=== PATIENT | female | born 1965 | race Caucasian/White ===

== ENCOUNTER 2020-07-07 04:18 | Day surgery (SDC) | payer OTHER ==
[2020-07-03 15:48] VITALS: BMI 24.7
[2020-07-07 06:41] LABS: HEMATOCRIT 42.4 % (32.4-45.2); HEMOGLOBIN 14.1 GM/dL (10.7-15.3); MCH 29.6 pg (25.7-33.7); MCHC 33.3 g/dl (32.0-36.0); MEAN PLT VOLUME 8.7 fl (7.5-11.1); PLATELET COUNT 269 K/MM3 (134-434); RBC 4.76 M/mm3 (3.60-5.2); RDW 13.8 % (11.6-15.6); WHITE BLOOD COUNT 6.7 K/mm3 (4.0-10.0)
[2020-07-07 06:52] LABS: ALBUMIN 4.2 g/dl (3.4-5.0); BILIRUBIN,TOTAL 0.3 mg/dL (0.2-1); CALCIUM 9.2 mg/dL (8.5-10.1); CREATININE 0.9 mg/dL (0.55-1.3); POTASSIUM 4.8 mmol/L (3.5-5.1)
[2020-07-07 07:00] LABS: INR 0.98 (0.83-1.09); PROTHROMBIN TIME (PATIENT) 11.6 SEC (9.7-13.0)
[2020-07-07] MEDS ORDERED: PROPOFOL 20 ML ONE ×2 (07:38)
[2020-07-07] MEDS ORDERED: ROCURONIUM BROMIDE 50 MG/5 ML SYRINGE ONE (07:38)
[2020-07-07] MEDS ORDERED: MIDAZOLAM HCL 2 MG/2 ML SINGLE DOSE VIAL ONE (07:39)
--- NOTE | 2020-07-07 08:44 | HP ---
History & Physical Update - History History: No Change (Endometrial thickening) - Physical Physical: No Change - Assessment Assessment: No Change - Plan Plan: No Change (Hysteroscopy, D&C)
[2020-07-07] MEDS ORDERED: oxyCODONE HCL 5 MG TABLET PO PRN (09:17)
[2020-07-07] MEDS ORDERED: ONDANSETRON 4 MG/2 ML VIAL IVPUSH PRN (09:17)
--- NOTE | 2020-07-07 09:19 | OP ---
Operative Note - Note: Operative Date: 07/07/20 Pre-Operative Diagnosis: Thickened Endom echo. Postmenopausal bleeding Operation: Hysteroscopy, D&C Findings: Normal endometrial cavity with atrophic endometrium Post-Operative Diagnosis: Same as Pre-op Surgeon: Medhat Bonilla Anesthesiologist/FIELD TRAINER: Marichuy Mcfarlane Anesthesia: General Specimens Removed: Endometrial curettings Estimated Blood Loss (mls): 3 Blood Volume Replaced (mls): 0 Fluid Volume Replaced (mls): 800 Operative Report Dictated: Yes
[2020-07-07] MEDS ORDERED: LACTATED RINGERS SOLUTION 1,000 ML IV SCH (09:30)
--- NOTE | 2020-07-07 11:57 | OP ---
DATE OF OPERATION: 07/07/2020 PREOPERATIVE DIAGNOSIS: Postmenopausal bleeding, thickened endometrial echo. POSTOPERATIVE DIAGNOSIS: Postmenopausal bleeding, thickened endometrial echo. PROCEDURE: Hysteroscopy, dilation and curettage. SURGEON; Dilshad Gordillo MD ANESTHESIOLOGIST: BEBETO Osman ANESTHESIA: General. COMPLICATIONS: None. ESTIMATED BLOOD LOSS: 3 mL IV FLUIDS: 800 mL PATHOLOGY: Endometrial curettings. FINDINGS: Examination under anesthesia revealed a small retroverted uterus with no pelvic or adnexal masses. Hysteroscopy revealed a normal endometrial cavity with atrophic endometrium. PROCEDURE: The patient was met preoperatively. Risks, benefits, alternatives of surgery were discussed in details. All questions were answered. The consent form was discussed and reviewed. The patient verbalized her understanding and requested to proceed with the surgery. She was brought to the OR with the IV running. The patient was placed on a surgical table in the supine position. The general anesthesia was achieved without difficulty. The patient was then placed in a dorsal lithotomy position using adjustable Kevin stirrups. She was examined under anesthesia with the findings as described above. The timeout was conducted as per standard protocol. The patient was prepped and draped in the usual sterile fashion. A weighted speculum was introduced inside the vagina with good visualization of the cervix. The cervix was grasped with a single-tooth tenaculum. The endocervical canal was dilated to accommodate a size 15 Shay dilator. A diagnostic hysteroscope was introduced with the findings as observed above. The hysteroscope was then removed. Endometrial curettage was performed. The tissue was sent to Pathology. The instruments were then removed from the patient. Good hemostasis was confirmed. Sponge, lap and instrument counts were correct. The patient was returned to supine position. She was transferred to recovery room in stable condition and awake. DILSHAD GORDILLO M.D. [id number]
[2020-07-07 12:52] VITALS: BP 98/53; PULSE 51; TEMP 97.5
--- NOTE | 2020-07-08 17:39 | PATH ---
Surgical Pathology Report Patient Name: MONIQUE CHAVIS [facility]. Rec. #: [id number] /Age/Gender: 1965 (Age: 54) / F Account: [id number] Location: [facility] SURGICAL Taken: 07/07/2020 Received: 07/07/2020 Reported: 07/08/2020 Physicians: Medhat Bonilla M.D. Specimen(s) Received ENDOMETRIAL CURETTINGS Clinical History Endometrial hyperplasia, postmenopausal bleeding Final Diagnosis ENDOMETRIAL CURETTINGS, DILATION AND CURETTAGE: FRAGMENTS OF WEAKLY PROLIFERATIVE ENDOMETRIUM AND SCANT BENIGN CERVICAL TISSUE. Electronically Signed Monique Melendez M.D. Gross Description Received in formalin labeled "endometrial curettings," is a 1.4 x 1.2 x 0.3 cm aggregate of barajas soft tissue fragments. The formalin is filtered and the specimen is entirely submitted in one cassette. DL/07/07/2020 saudi/07/07/2020
== END 2020-07-07 13:35 | disposition home or self-care (01) ==
LOC: JASU-SURG 04:18
PROVIDERS: ATTEND Obstetrics & Gynecology
PROC: 0UDB7ZZ Extraction of Endometrium, Via Natural or Artificial Opening (ICD-10-PCS; principal; 2020-07-07 08:30)
PROC: 0UJD8ZZ Inspection of Uterus and Cervix, Via Natural or Artificial Opening Endoscopic (ICD-10-PCS; 2020-07-07 08:30)
DX: N95.0 Postmenopausal bleeding (principal)
CPT/HCPCS: 36415; 80053; 84703; 85027; 85610; 86850; 86900; 86901; 88305-TC; 94760